=== PATIENT | male | born 1955 | race Caucasian/White ===

== ENCOUNTER 2018-12-25 10:49 | Emergency (ER) | payer MEDICARE, OTHER ==
[~2018-12-25] VITALS: Ht 200.7 cm; Wt 77.1 kg
[~2018-12-25 10:49] MED LIST: ALBIPROI INH; ALBU90I; ALBU90OI INH; ALBU90OI61 INH; AZIT250 PO; DOXY100 PO; IBUP600 PO; LEVFLO500 PO; OXYACE5T PO; PRED20 PO
[2018-12-25 11:54] LABS: BASOPHILS ABSOLUTE AUTO 0.12 K/mm3 (0.00-0.23); BASOPHILS PERCENT AUTO 1 % (0-2); EOSINOPHILS ABSOLUTE AUTO 0.53 K/mm3 (0.00-0.68); EOSINOPHILS PERCENT AUTO 5 % (0-6); Hematocrit 44.2 % (37.0-53.0); Hemoglobin 15.2 g/dL (13.5-17.5); IMMATURE GRAN ABSOLUTE AUTO 0.02 K/mm3 (0.00-0.10); IMMATURE GRAN PERCENT AUTO 0 % (0-1); LYMPHOCYTES ABSOLUTE AUTO 1.45 K/mm3 (0.84-5.20); LYMPHOCYTES PERCENT AUTO 15 % (21-46); MONOCYTES ABSOLUTE AUTO 0.69 K/mm3 (0.16-1.47); MONOCYTES PERCENT AUTO 7 % (4-13); Mean Corpuscular HGB 32.4 pg (26.0-34.0); Mean Corpuscular HGB Conc 34.4 g/dL (31.5-36.5); Mean Corpuscular Volume 94 fL (80-100); Mean Platelet Volume 9.4 fL (9.1-12.4); NEUTROPHILS ABSOLUTE AUTO 7.02 K/mm3 (1.96-9.15); NEUTROPHILS PERCENT AUTO 71 % (41-73); Platelet Count 271 K/mm3 (150-400); RDW Coefficient Variation 13.6 % (11.7-14.2); RDW Standard Deviation 47.3 fL (35.1-46.3); Red Blood Cell Count 4.69 M/mm3 (4.30-5.90); White Blood Cell Count 9.83 K/mm3 (4.00-11.30)
[2018-12-25 12:10] LABS: Alanine Aminotransfer (ALT/SGP 17 U/L (12-78); Albumin, Blood 3.9 g/dL (3.4-5.0); Albumin/Globulin Ratio 1.3 (0.8-1.8); Alk Phos 72 U/L (50-136); Anion Gap 6 mmol/L (6-16); Aspartate Aminotrans (AST/SGOT 24 U/L (12-37); Bilirubin, Total 0.6 mg/dL (0.1-1.0); Blood Urea Nitrogen 14 mg/dL (8-24); Bun/Creatinine Ratio 16.3 (12.0-20.0); CO2, Blood 24 mmol/L (21-32); Calcium, Blood 8.9 mg/dL (8.5-10.1); Chloride, Blood 109 mmol/L (98-108); Creatinine, Blood 0.86 mg/dL (0.60-1.20); Globulin, Blood 2.9 g/dL (2.2-4.0); Glomerular Filtration Rate >60 (60-); Glucose, Blood 97 mg/dL (70-99); Potassium, Blood 3.9 mmol/L (3.5-5.5); Sodium, Blood 139 mmol/L (136-145); Total Protein, Blood 6.8 g/dL (6.4-8.2); Troponin I <0.015 ng/mL (0.000-0.040)
== END 2018-12-25 13:27 | disposition home or self-care (01) ==
LOC: ER 10:49
PROVIDERS: Physician Assistant
DX: R55 Syncope and collapse (principal); F17.210 Nicotine dependence, cigarettes, uncomplicated
CPT/HCPCS: 36415; 70450; 71046; 80053; 84484; 85025; 93005; 93010; 99284-25

== ENCOUNTER 2020-01-18 13:24 | Emergency (ER) | payer OTHER ==
[~2020-01-18] VITALS: Ht 200.7 cm; Wt 74.8 kg
== END 2020-01-18 14:48 | disposition home or self-care (01) ==
LOC: ER 13:24
DX: S61.216A Laceration without foreign body of right little finger without damage to nail, initial encounter (principal); F17.210 Nicotine dependence, cigarettes, uncomplicated; Z23 Encounter for immunization; W55.03XA Scratched by cat, initial encounter
CPT/HCPCS: 12001; 90471; 90714; 99282-25

== ENCOUNTER 2023-12-31 11:38 | Emergency (ER) | payer OTHER ==
[~2023-12-31] VITALS: Ht 195.6 cm; Wt 81.7 kg
[2023-12-31 12:13] VITALS: BP 132/89
[2023-12-31] MEDS ORDERED: BACITRACIN ZIN1 EAC1 TOP (13:23)
[2023-12-31] MEDS ORDERED: BACTRIM DS TAB1 EAC1 PO (13:23)
== END 2023-12-31 13:53 | disposition home or self-care (01) ==
LOC: ER 11:38
DX: L03.012 Cellulitis of left finger (principal); F17.210 Nicotine dependence, cigarettes, uncomplicated; Z59.89 Other problems related to housing and economic circumstances
CPT/HCPCS: 10060; 73140; 99283-25

== ENCOUNTER → 2025-01-12 | Outpatient (CLI) | payer OTHER ==
[~2025-01-12] MED LIST changes: +BACITRACIN ZIN1 EAC1 TOP; +BACTRIM DS TAB1 EAC1 PO
== END ==
LOC: LAB 13:12 → LAB SHORT 13:12
DX: R82.90 Unspecified abnormal findings in urine (principal)
CPT/HCPCS: 87086